=== PATIENT | male | born 1985 ===

== ENCOUNTER 2023-07-28 03:47 | Emergency (ER) | payer MEDICAID ==
[~2023-07-28] VITALS: Ht 165.1 cm; Wt 59.1 kg
[2023-07-28] MEDS: TETanus/Pertussis (Acell)/Diphther VAC/PF (Tdap-Adult) 0.5ml syringe IMVAC ONE (04:32)
[2023-07-28] MEDS: acetaminophen 325mg tablet PO ONE (04:33)
[2023-07-28] MEDS: LIDOcaine 1% W/epiNEPHrine 1:100,000 20ml vial IJ ONE (04:53)
[2023-07-28 05:00] VITALS: BP 115/80; PULSE 88; RESP 16; TEMP 97.6; O2SAT 97
== END 2023-07-28 05:00 ==
LOC: ER 03:48
DX: S01.01XA Laceration without foreign body of scalp, initial encounter (principal); X58.XXXA Exposure to other specified factors, initial encounter; Y93.89 Activity, other specified; Y92.89 Other specified places as the place of occurrence of the external cause; Y99.8 Other external cause status
CPT/HCPCS: 12002; 90471; 90715; 99283